=== PATIENT | female | born 1975 | race Caucasian/White ===

== ENCOUNTER 2020-12-10 17:14 | Inpatient (IN) | payer BC ==
[~2020-12-10] VITALS: Ht 165.1 cm; Wt 77.0 kg
[~2020-12-10 17:14] MED LIST: CYCLOBENZAPRINE10 MG PO; EFFEXOR XR75 MG/CAP PO; FLEXERIL5 M1 PO; FLONASE AL50 MCG/ACT NS; LAMOTRIGINE100 MG PO; LIPITOR20 M1 PO; LORAZEPAM0.5 MG PO; NEURONTIN100 MG PO; NEURONTIN300 MG PO; NEURONTIN600 MG PO; TRAMADOL HCL50 MG PO; VALPROIC ACD250 M3 PO; XYZAL ALLERGY 245 MG PO
--- NOTE | 2020-12-10 17:35 | NUR ---
TO ROOM VIA WHEELCHAIR
[2020-12-10 18:21] LABS: HEMATOCRIT 36.5 % (37.0-47.0); HEMOGLOBIN 11.7 g/dl (12.0-16.0); IMMATURE GRANULOCYTES 0.4 % (0.0-5.0); MEAN CELL VOLUME 89.5 fL CALC (80.0-100.0); MEAN CORPUSCULAR HGB 28.7 pG CALC (26.0-32.0); MEAN CORPUSCULAR HGB CONC 32.1 g/dL CAL (32.0-36.0); NEUT# 3.32 thou/uL (2.00-7.15); RED BLOOD COUNT 4.08 mill/uL (4.20-5.60); RED CELL DISTRI WIDTH 12.6 % (11.5-15.5)
--- NOTE | 2020-12-10 18:28 | NUR ---
IV AND O2 PLACE, NO DISTRESS NOTED. CALL LIGHT WITHIN REACH. BED IN LOW POSITION.
[2020-12-10 18:36] LABS: ALBUMIN 3.9 g/dL (3.2-5.0); ALKALINE PHOSPHATASE 55 u/l (38-126); ANION GAP 10 (6-22 (CALC)); BILIRUBIN, TOTAL 0.4 mg/dL (0.0-1.4); BUN 12 mg/dL (7-17); BUN/CREATININE RATIO 16 (12-20 (CALC)); CARBON DIOXIDE 29 mmol/l (22-30); CHLORIDE 96 mmol/l (95-108); CREATININE 0.8 mg/dL (0.5-1.0); GFR > 60 ML/MIN (>=60 (CALC)); GFR FOR AFR.AMER. > 60 ML/MIN (>=60 (CALC)); POTASSIUM 3.3 mmol/l (3.5-5.1); SGOT/AST 59 u/l (14-36); SODIUM 132 mmol/l (137-146); TOTAL PROTEIN 6.9 g/dL (6.3-8.2)
[2020-12-10 18:47] LABS: MYOGLOBIN 87 ng/mL (0 - 62)
--- NOTE | 2020-12-10 19:45 | NUR ---
NO COUGH NO CONGESTION NO SOB/DYSPNEA.W/P/D SKIN
--- NOTE | 2020-12-10 22:31 | NUR ---
W/P/D SKIN NO COUGH NO CONGESTION NO S/S OF DYSPNEA UP TO BSC TO VOID.PT C/O NAUSEA AND MEDICATED NO VOMITING
--- NOTE | 2020-12-11 01:42 | NUR ---
PT UP TO BSC TO VOID HAS DRY FITTINGS FINISHER COUGHING SPASM THEREAFTER NO [id number] NO CONGESTION MEDICATED WITH PRN ROBITUSSIN SYRUP.
--- NOTE | 2020-12-11 04:40 | NUR ---
COUGHING SPASM HAS RESOLVED.PT FEELS IMPROVED.REINFORCED DX AND POC WITH PT.W/P/D SKIN NO DYSPNEA.NO CONGESTION NO PAIN OF ANY ORIGIN
[2020-12-11 04:55] LABS: HEMATOCRIT 38.1 % (37.0-47.0); HEMOGLOBIN 11.9 g/dl (12.0-16.0); IMMATURE GRANULOCYTES 0.9 % (0.0-5.0); MEAN CELL VOLUME 90.3 fL CALC (80.0-100.0); MEAN CORPUSCULAR HGB 28.2 pG CALC (26.0-32.0); MEAN CORPUSCULAR HGB CONC 31.2 g/dL CAL (32.0-36.0); NEUT# 3.36 thou/uL (2.00-7.15); RED BLOOD COUNT 4.22 mill/uL (4.20-5.60); RED CELL DISTRI WIDTH 12.8 % (11.5-15.5)
[2020-12-11 05:12] LABS: ALBUMIN 3.7 g/dL (3.2-5.0); ALKALINE PHOSPHATASE 53 u/l (38-126); ANION GAP 11 (6-22 (CALC)); BILIRUBIN, TOTAL 0.4 mg/dL (0.0-1.4); BUN 12 mg/dL (7-17); BUN/CREATININE RATIO 18 (12-20 (CALC)); C-REACTIVE PROTEIN 6.9 mg/dL (0-0.9); CARBON DIOXIDE 31 mmol/l (22-30); CHLORIDE 98 mmol/l (95-108); CREATININE 0.7 mg/dL (0.5-1.0); GFR > 60 ML/MIN (>=60 (CALC)); GFR FOR AFR.AMER. > 60 ML/MIN (>=60 (CALC)); SGOT/AST 62 u/l (14-36); SODIUM 135 mmol/l (137-146); TOTAL PROTEIN 6.6 g/dL (6.3-8.2)
[2020-12-11 05:15] LABS: POTASSIUM 4.6 mmol/l (3.5-5.1)
--- NOTE | 2020-12-11 07:15 | NUR ---
RECIEVED REPORT FROM JAZZY RN, PT RESTING ON 2L OXYGEN, CONTINUOUS CARDIAC MONITORING IN PLACE, CALL LIGHT IN REACH
[2020-12-11] MEDS ORDERED: VENTOLIN HFA IN (10:21)
[2020-12-11] MEDS ORDERED: FLOVENT HFA44 MC1 IN (10:22)
[2020-12-11] MEDS ORDERED: TRILEPTAL150 MG PO (10:23)
--- NOTE | 2020-12-11 11:00 | NUR ---
PT ARRIVED TO FLOOR BY ER NURSE. BEDSIDE REPORT RECEIVED. NO COMPLAINS/DISTRESS AT THIS SAT. PT O2 SAT 90S. PT HAS C/O IV AND PLACEMENT REQUESTED TO BE REMOVED. DR HARRELL AWARE OK TO LEAVE OUT. NO IV MEDS TO BE GIVEN. WILL CONTIUE TO MONITOR.
--- NOTE | 2020-12-11 11:00 | NUR ---
PT AOX3, TRANSPORTED TO [facility] FLOOR, REPORT GIVEN TO MARLO MENDOZA. OXYGEN USED IN TRANSPORT 3L, ALL BELONGINGS WITH PT
[2020-12-11 11:09] VITALS: BP 125/67
[2020-12-11 15:00] VITALS: BP 111/54
--- NOTE | 2020-12-11 16:30 | NUR ---
PT REQUESTED TO GET UP TO SHOWER. WHEN ATTEMPTED PT BEGAN TO DESAT, WENT TO 83% PER KYLER. SHE STATED SHE PUT PT BACK IN BED THEN CAME TO NOTIFY SN. SN INSTRUCTED PT TO PRONE AND HAVE LEFT O2 SAT AT BEDSIDE. INSTRUCTED IN VENTOLIN USE AND MEDICATED PRN ROBITUSSIN. WILL CONTINUE TO MONITOR.
--- NOTE | 2020-12-11 17:48 | NUR ---
02 HAS BEEN STABLE WITH PT ON 8LPM HIGH FLOW. 02 SAT 95%.
[2020-12-11 19:00] VITALS: BP 126/79
--- NOTE | 2020-12-11 20:00 | NUR ---
PATIENT RESTING IN BED AT THIS TIME-AWAKE ALERT AND ORIENTEDX3. PATIENT IS SLIGHTLY ANXIOUS ABOUT BEING IN THE HOSPITAL. PATIENT ON O2 10 HIGH FLOW. LUNGS ARE CLEAR BUT DDIMINISHED. NON-PRODUCTIVE COUGH. NEW IV SITE STARTED TO RAC WITH GOOD BLOOD RETURN. ROCEPHINE HUNG ORDERED. PATIENT ON ISOLATION FOR COVID. ENCOURAGED USE OF IS Q1H WHILE AWAKE. ENCOURAGED PRONING WHEN POSSIBLE. PATIENT UP TO THE BR TO VOID AND THEN BACK TO BED. SAFETY PRECAUTIONS REINFORCED. ALESSANDRA LIGHT IN REACH. WILL CONT TO MONITOR.
--- NOTE | 2020-12-11 23:00 | NUR ---
PATIENT RESTING IN BED WITH O2 VIA NASAL CANNULA IN PLACE. AZITHRO INFUSED ORDERED. PATIENT WAS MEDICATED FOR CHRONIC BACK PAIN WITH TYLENOL 650MG PO FOR 8/10 PAIN SCALE. ALSO MEDICATED FOR NON-PRODUCTIVE COUGH WITH ROBITUSSIN AC ORDERED PRN. PROVIDED WITH JUICE AND CEREAL BAR FOR HS SNACK. IV SITE TO LEFT AC IS HEALTHY. SAFETY PRECAUTIONS REINFORCED. CALL LIGHT IN REACH. WILL CONT TO MONITOR.
[2020-12-12] VITALS: BP 83/46
--- NOTE | 2020-12-12 00:29 | NUR ---
PATIENT RESTING IN BED WITH O2 OFF. PATIENT SLIGHTLY CONFUSED. THINKS THAT STAFF IS HER SISTER. THINKS THAT SHE IS AT HOME. BP IS LOW-83/46. O2 REAPPLIED AND O2 SAT OF 93% OBTAINED.. SAFETY PRECAUTIONS REINFORCED. REORIENTED TO SITUATION. CALL LIGHT IN REACH. WILL CONT TO MONITOR.
[2020-12-12 04:00] VITALS: BP 99/59
--- NOTE | 2020-12-12 04:32 | NUR ---
PATIENT RESTING IN BED AT THIS TIME-O2 VIA NASAL CANNULA IN PLACE DOWN TO 5L HIGH FLOW WITH O2 SAT OF 96%. CALL LIGHT IN REACH. WILL CONT TO MONITOR.
[2020-12-12 06:22] LABS: HEMATOCRIT 36.3 % (37.0-47.0); HEMOGLOBIN 11.4 g/dl (12.0-16.0); MEAN CELL VOLUME 91.2 fL CALC (80.0-100.0); MEAN CORPUSCULAR HGB 28.6 pG CALC (26.0-32.0); MEAN CORPUSCULAR HGB CONC 31.4 g/dL CAL (32.0-36.0); NEUT# 5.72 thou/uL (2.00-7.15); RED BLOOD COUNT 3.98 mill/uL (4.20-5.60); RED CELL DISTRI WIDTH 12.8 % (11.5-15.5)
[2020-12-12 06:25] LABS: ALBUMIN 3.2 g/dL (3.2-5.0); ALKALINE PHOSPHATASE 50 u/l (38-126); ANION GAP 11 (6-22 (CALC)); BUN 14 mg/dL (7-17); BUN/CREATININE RATIO 26 (12-20 (CALC)); CARBON DIOXIDE 28 mmol/l (22-30); CHLORIDE 101 mmol/l (95-108); CREATININE 0.6 mg/dL (0.5-1.0); GFR > 60 ML/MIN (>=60 (CALC)); GFR FOR AFR.AMER. > 60 ML/MIN (>=60 (CALC)); POTASSIUM 4.1 mmol/l (3.5-5.1); SGOT/AST 54 u/l (14-36); SODIUM 136 mmol/l (137-146); TOTAL PROTEIN 5.8 g/dL (6.3-8.2)
[2020-12-12 06:31] LABS: BILIRUBIN, TOTAL 0.2 mg/dL (0.0-1.4)
--- NOTE | 2020-12-12 08:51 | NUR ---
PT AWAKE, A&OX4, PT SITTING UP IN BED. PT DENIES ANY PAIN AT THIS TIME. VS AND ASSESSMENT COMPLETE. PT SP02 92% ON 5L NC. PT DENIES SOB AT THIS. BP 90/50 WILL MONITOR CLOSELY. ABDOMEN FLAT,SOFT AND NONTENDER. BOWEL SOUNDS ACTIVE X 4QUADS. PERIPHERAL PULSES PALPABLE. LUNGS DIMINISHED. PT AMBULATED TO BATHROOM WITHOUT ASSIST WITHOUT DISTRESS. SAFETY PRECAUTIONS IN PLACE AND CALL LIGHT WITHIN PATIENTS REACH. WILL CONTINUE TO MONITOR PT CLOSELY
[2020-12-12 10:50] VITALS: BP 89/39
--- NOTE | 2020-12-12 12:00 | NUR ---
PT SITTING IN CHAIR. PT DENIES ANY PAIN OR DISTRESS. PT HAS NO NEEDS AT THIS TIME. WILL CONTINUE TO MONITOR
[2020-12-12 14:50] VITALS: BP 106/61
--- NOTE | 2020-12-12 16:00 | NUR ---
PT LYING IN BED READING. PT HAS NO NEEDS AT THIS TIME WILL CONTINUE TO MONITOR
[2020-12-12 19:08] VITALS: BP 108/65
--- NOTE | 2020-12-12 20:00 | NUR ---
PATIENT AWAKE IN BED. RESPIRATIONS EVEN AND UNLABORED. HR REG. DENIES PAIN. O2 5L N/C ON THE FLOOR, GIVEN TO PATIENT TO PUT ON. NO ACUTE DISTRESS. SPOKE WITH PATIENT REGARDS TRILEPTAL AND ASKED IF SOMEONE HAD BROUGHT THE MEDICATION IN SO IT CAN BE ADMINISTERED DUE TO NOT BEING ON HOSPITAL FORMULARY. PATIENT REPLIED THAT SHE HAD BEEN TAKING HER OWN MEDICATIONS WHILE IN THE HOSPITAL. PATIENT PULLED OUT A LARGE PILL BOX WITH A TOTAL OF 28 SPACES TO PUT MEDICATIONS. SHE SAID SHE HAS BEEN TAKING HER ATIVAN, TRILEPTAL, AND ULTRAM BECAUSE NOBODY HAS GIVEN IT TO HER. THE PATIENT AND THIS NURSE COUNTED EACH PILL IN EACH INDIVIDUAL BOX. BOX WAS TAKEN FROM PATIENT'S ROOM AND PLACED IN THE MED ROOM FOR SAFETY. PATIENT ALSO CALLED SOMEONE TO BRING IN FIRST THING IN THE A.M. SO THEY CAN BE VERIFIED BY PHARMACY. PATIENT IS NOT IN DISTRESS. CALM DEMEANOR. BED IN LOW POSITION. CALL LIGHT WITHIN REACH.
--- NOTE | 2020-12-12 23:52 | NUR ---
PATIENT AWOKE WITH NAUSEA. CRYING IN ROOM. ZOFRAN IV GIVEN WITH POSITIVE EFFECT.
[2020-12-13 00:57] VITALS: BP 117/71
[2020-12-13 04:36] VITALS: BP 105/65
--- NOTE | 2020-12-13 04:42 | NUR ---
PATIENT WOKE AGAIN FEELING NAUSEOUS AND COUGHING A LOT. ZOFRAN AND ROBITUSSIN AC GIVEN.
[2020-12-13 05:41] LABS: HEMATOCRIT 36.8 % (37.0-47.0); HEMOGLOBIN 11.6 g/dl (12.0-16.0); IMMATURE GRANULOCYTES 4.3 % (0.0-5.0); MEAN CELL VOLUME 91.1 fL CALC (80.0-100.0); MEAN CORPUSCULAR HGB 28.7 pG CALC (26.0-32.0); MEAN CORPUSCULAR HGB CONC 31.5 g/dL CAL (32.0-36.0); NEUT# 4.46 thou/uL (2.00-7.15); RED BLOOD COUNT 4.04 mill/uL (4.20-5.60); RED CELL DISTRI WIDTH 12.5 % (11.5-15.5)
[2020-12-13 06:04] LABS: ALBUMIN 3.1 g/dL (3.2-5.0); ALKALINE PHOSPHATASE 53 u/l (38-126); ANION GAP 9 (6-22 (CALC)); BILIRUBIN, TOTAL 0.2 mg/dL (0.0-1.4); BUN 14 mg/dL (7-17); BUN/CREATININE RATIO 29 (12-20 (CALC)); C-REACTIVE PROTEIN 4.1 mg/dL (0-0.9); CARBON DIOXIDE 27 mmol/l (22-30); CHLORIDE 105 mmol/l (95-108); CREATININE 0.5 mg/dL (0.5-1.0); GFR > 60 ML/MIN (>=60 (CALC)); GFR FOR AFR.AMER. > 60 ML/MIN (>=60 (CALC)); POTASSIUM 4.4 mmol/l (3.5-5.1); SGOT/AST 51 u/l (14-36); SODIUM 137 mmol/l (137-146); TOTAL PROTEIN 5.7 g/dL (6.3-8.2)
--- NOTE | 2020-12-13 08:00 | NUR ---
PT AWAKE RESTING COMFORTABLE IN BED. PT ALERT AND ORIENTED. VS AND ASSESSMENT COMPLETE. PT ON TELE AND O2 RESPIRATIONS ARE EVEN AND UNLABORED. ABDOMEN SOFT NONTENDER. IV PATENT AND FLUSHED. SAFETY PRECAUTIONS IN PLACE AND CALL LIGHT PLACED WITHIN PATIENTS REACH. WILL MONITOR PT CLOSELY
[2020-12-13 08:23] LABS: URINE BILIRUBIN - DIPSTICK NEGATIVE (NEGATIVE); URINE BLOOD DIPSTICK NEGATIVE (NEGATIVE); URINE COLOR YELLOW; URINE GLUCOSE - DIPSTICK NEGATIVE (NEGATIVE); URINE KETONE NEGATIVE (NEGATIVE); URINE LEUK ESTERASE NEGATIVE (NEGATIVE); URINE PH 7.5 (4.5-8.0); URINE PROTEIN - DIPSTICK NEGATIVE (NEG-TRACE); URINE SPECIFIC GRAVITY 1.015; URINE UROBILINOGEN - DIPSTICK 0.2 E.U./dL (0.2)
[2020-12-13 08:26] LABS: URINE NITRITE - DIPSTICK NEGATIVE (Negative)
--- NOTE | 2020-12-13 10:15 | NUR ---
PT FAILED 6 MINUTE WALK TEST. PT DESAT TO 83% AFTER 30 MINUTES ON RA AT REST. PHYSICIAN NOTIFIED
[2020-12-13 10:50] VITALS: BP 103/59
--- NOTE | 2020-12-13 12:00 | NUR ---
PT SITTING UP IN BED WATCHING TV. PT DENIES ANY NEEDS. WILL CONTINUE TO MONITOR. SAFETY MEASURES MAINTAINED AND CALL LIGHT WITHIN PT REACH. -
[2020-12-13 15:25] VITALS: BP 125/77
--- NOTE | 2020-12-13 16:00 | NUR ---
PT RESTING IN BED. PT DENIES ANY NEEDS AT THIS TIME. WILL CONTINUE TO MONITOR. SAFETY MEASURES MAINTAINED AND CALL LIGHT WITHIN REACH OF PATIENT.
[2020-12-13 19:00] VITALS: BP 137/82
--- NOTE | 2020-12-13 19:30 | NUR ---
PATIENT ALERT AND ORIENTED. ABLE TO MAKE NEEDS KNOWN. ASSESSMENT COMPLETE AT THIS TIME. CALL LIGHT AND BELONGINGS REMAIN IN REACH.
--- NOTE | 2020-12-13 21:57 | NUR ---
CONTACTED I O PSYCHOLOGIST DOCTOR AND INFORMED OF PATIENT WANTING TO GO AMA. PATIENT DECIDED TO STAY. ALSO INFORMED DOCTOR OF PATIENTS HOME MEDICATION OXYCARBAZAPINE NOT GIVEN DUE TO NOT BEING BROUGHT.
[2020-12-14] VITALS: BP 132/73
--- NOTE | 2020-12-14 02:10 | NUR ---
RESTING IN BED ON HER LEFT SIDE. NO COMPLAINTS VOICED AT THIS TIME.
[2020-12-14 04:00] VITALS: BP 131/82
[2020-12-14 05:57] LABS: HEMATOCRIT 38.5 % (37.0-47.0); MEAN CELL VOLUME 91.7 fL CALC (80.0-100.0); MEAN CORPUSCULAR HGB 28.6 pG CALC (26.0-32.0); MEAN CORPUSCULAR HGB CONC 31.2 g/dL CAL (32.0-36.0); NEUT# 6.28 thou/uL (2.00-7.15); RED BLOOD COUNT 4.2 mill/uL (4.20-5.60); RED CELL DISTRI WIDTH 12.7 % (11.5-15.5)
[2020-12-14 06:05] LABS: IMMATURE GRANULOCYTES 7.3 % (0.0-5.0)
--- NOTE | 2020-12-14 06:10 | NUR ---
RESTING IN BED WITH EYES CLOSED LAYING ON RIGHT SIDE. NO SIGNS OF DISTRESS NOTED. PATIENT TAKES OFF OXYGEN DURING THE NIGHT PERIODICALLY. REDIRECTION NEEDED.
[2020-12-14 06:12] LABS: ALBUMIN 3.3 g/dL (3.2-5.0); ALKALINE PHOSPHATASE 56 u/l (38-126); ANION GAP 12 (6-22 (CALC)); BUN 11 mg/dL (7-17); BUN/CREATININE RATIO 19 (12-20 (CALC)); CARBON DIOXIDE 27 mmol/l (22-30); CHLORIDE 105 mmol/l (95-108); CREATININE 0.6 mg/dL (0.5-1.0); GFR > 60 ML/MIN (>=60 (CALC)); GFR FOR AFR.AMER. > 60 ML/MIN (>=60 (CALC)); POTASSIUM 4.4 mmol/l (3.5-5.1); SGOT/AST 42 u/l (14-36); SODIUM 139 mmol/l (137-146); TOTAL PROTEIN 5.9 g/dL (6.3-8.2)
[2020-12-14 06:29] LABS: BILIRUBIN, TOTAL 0.3 mg/dL (0.0-1.4)
--- NOTE | 2020-12-14 07:05 | NUR ---
REPORT RECEIVED FROM JENNIFERRN
[2020-12-14 08:59] VITALS: BP 97/54
--- NOTE | 2020-12-14 09:00 | NUR ---
PT RESTING IN SEMI FOWLERS POSITION,A&O X3;VS OBTAINED AND ASSESSMENT COMPLETED;PT REPORTS LOWER BACK/NECK PAIN RATING 8/10 ON THE PAIN SCALE AND REQUESTS PRN PAIN MEDICATION, PT TO BE MEDICATED WITH PRN ULTRAM 50MG PO AND ATIVAN 0.5MG PO PER REQUEST;RESPIRATIONS EVEN AND UNLABORED ON O2 @ 4L NC, CLEAR/DIMINISHED LUNG SOUNDS WITH NON-PRODUCTIVE COUGH;ABOMEN SOFT ON PALPATION AND ACTIVE IN ALL 4 QUADRANTS;WEAK PEDAL PULSES;SKIN INTACT;#20G TO LAC FLUSHED AND PATENT,SITE APPEARS HEALTHY;PT REMAINS IN AIR/CONTACT PRECAUTIONS DUE TO COVID19 DX;PT DENIES ANY ADDITIONAL NEEDS AND IS ENCOURAGED TO CALL FOR ASSISTANCE IF NEEDED;FALL PRECAUTIONS IN PLACE WITH BED IN THE LOWEST POSITION AND CALL LIGHT IN REACH;WILL CONTINUE TO MONITOR
[2020-12-14 10:00] VITALS: BP 91/46
--- NOTE | 2020-12-14 10:50 | NUR ---
AT BEDSIDE DISCUSSING POC.
--- NOTE | 2020-12-14 11:25 | NUR ---
PT RESTING IN SEMI FOWLERS POSITION;RESPIRATIONS EVEN AND UNLABORED ON O2 @ 4L VIA NC;PT DENIES ANY CURRENT PAIN OR DISCOMFORTS;IV SITE PATENT;PT REQUESTS PRN COUGH MEDICATION, INFORMED PT THAT PRN ORDER HAD AND PT VERBALIZES UNDERSTANDING;MD NOTIFIED OF REQUEST, AWAITING NEW ORDERS;PT ROOM MOVED TO MED/SURG ROOM 268 AT THIS TIME DUE TO MAINTENANCE NEEDS AND ALL BELONGINGS MOVED WITH HER;PT DENIES ANY ADDITIONAL NEEDS AT THIS TIME AND IS ENCOURAGED TO CALL FOR ASSISTANCE IF NEEDED;FALL PRECAUTIONS REMAIN IN PLACE WITH CALL LIGHT IN REACH;WILL CONTINUE TO MONITOR
--- NOTE | 2020-12-14 12:00 | NUR ---
PT MEDICATED WITH PRN TYLENOL 650MG PO AND FLEXERIL 5MG PO FOR LOWER BACK/NECK PAIN RATING 6/10 ON THE PAIN SCALE,WILL CONTINUE TO MONITOR FOR EFFECTIVENESS
--- NOTE | 2020-12-14 13:55 | NUR ---
PT MEDICATED WITH PRN ROBITUSSIN AC AT THIS TIME PER REQUEST;WILL CONTINUE TO MONITOR FOR EFFECTIVENESS
--- NOTE | 2020-12-14 15:15 | NUR ---
PT RESTING IN SEMI FOWLERS POSITION;RESPIRATIONS EVEN AND UNLABORED ON O2 @ 4L HF NC;PT REPORTS LOWER BACK/NECK PAIN RATING 6/10 AND REQUESTS PRN PAIN MEDICATION,PT MEDICATED WITH PRN ULTRAM 50MG PO AT THIS TIME;IV SITE TO LAC REMAINS PATENT;PT DENIES ANY ADDITIONAL NEEDS AND IS ENCOURAGED TO CALL FOR ASSISTANCE IF NEEDED;CALL LIGHT IN REACH;WILL CONTINUE TO MONITOR
[2020-12-14 17:00] VITALS: BP 96/65
[2020-12-14 19:00] VITALS: BP 96/57
--- NOTE | 2020-12-14 19:13 | NUR ---
PATRICA RECEIVED FROM HOWARD SERRA.
[2020-12-15 04:00] VITALS: BP 109/59
--- NOTE | 2020-12-15 04:36 | NUR ---
RESTING QUIETLY EYES CLOSED. CALL LIGHT WITHIN REACH.
--- NOTE | 2020-12-15 04:37 | NUR ---
LATE ENTRY FOR 12/14 @ 2120. PATIENT SITTING UP IN BED WATCHING TV. PATIENT C/O BACK PAIN ULTRAM ADMINISTERED IN ADDITION TO SCHEDULED NIGHTLY MEDICATION. PATIENT EXPRESSES CONCERNS OF TREMORS THAT SHE HAS. STATING THAT TREMORS HAVE BEEN PRESENT INTERMITTENTLY OVER THE PAST FEW WEEKS. EXPLAINED TO PATIENT THAT WITH USE OF PSYCHOTROPIC MEDICATION, THAT THIS IS A POSSIBLE SIDE EFFECT HOWEVER SHE SHOULD CONSULT WITH PSYCHIATRIST. PATIENT VERBALIZES UNDERSTANDING. OTHERWISE PATIENT ISN'T IN ANY DISTRESS, RESPIRATIONS UNLABORED. CALL LIGHT WITHIN REACH. INSTRUCTED TO CALL FOR ASSISTANCE.
[2020-12-15 05:34] LABS: HEMATOCRIT 36.4 % (37.0-47.0); HEMOGLOBIN 11.7 g/dl (12.0-16.0); MEAN CELL VOLUME 90.5 fL CALC (80.0-100.0); MEAN CORPUSCULAR HGB 29.1 pG CALC (26.0-32.0); MEAN CORPUSCULAR HGB CONC 32.1 g/dL CAL (32.0-36.0); NEUT# 6.88 thou/uL (2.00-7.15); RED BLOOD COUNT 4.02 mill/uL (4.20-5.60); RED CELL DISTRI WIDTH 12.4 % (11.5-15.5)
[2020-12-15 05:41] LABS: IMMATURE GRANULOCYTES 8.2 % (0.0-5.0)
[2020-12-15 05:53] LABS: ALKALINE PHOSPHATASE 55 u/l (38-126); ANION GAP 11 (6-22 (CALC)); BILIRUBIN, TOTAL 0.2 mg/dL (0.0-1.4); BUN 16 mg/dL (7-17); BUN/CREATININE RATIO 30 (12-20 (CALC)); C-REACTIVE PROTEIN 3.4 mg/dL (0-0.9); CARBON DIOXIDE 27 mmol/l (22-30); CHLORIDE 103 mmol/l (95-108); CREATININE 0.5 mg/dL (0.5-1.0); GFR > 60 ML/MIN (>=60 (CALC)); GFR FOR AFR.AMER. > 60 ML/MIN (>=60 (CALC)); POTASSIUM 4.3 mmol/l (3.5-5.1); SGOT/AST 35 u/l (14-36); SODIUM 136 mmol/l (137-146); TOTAL PROTEIN 5.6 g/dL (6.3-8.2)
--- NOTE | 2020-12-15 08:00 | NUR ---
PT AWAKE AND RESTING IN BED. PT ALERT AND ORIENTED. PT DENIES AND PAIN OR DISTRESS AT THIS TIME. VS AND ASSESSMENT COMPLETE. LUNGS DIMINISHED, RESPIRATIONS EVEN AND UNLABORED. ABDOMEN SOFT AND NONTENDER. PERIPHERAL PULSES PALPABLE. IV INTACT AND PATENT. SAFETY PRECAUTIONS IN PLACE. CALL LIGHT WITHIN PATIENTS REACH. WILL MONITOR PT CLOSELY
[2020-12-15] MEDS ORDERED: DEXAMETHASON6 MG PO (10:09)
[2020-12-15] MEDS ORDERED: ASPIRIN REGULA325 M1 PO (10:09)
[2020-12-15] MEDS ORDERED: ZITHROMAX250 MG PO (10:10)
[2020-12-15 11:21] VITALS: BP 97/55
--- NOTE | 2020-12-15 16:52 | NUR ---
PATIENT GIVEN DISCHARGE INSTRUCTIONS. PATIENT VERBALIZES UNDERSTANDING
--- NOTE | 2020-12-15 17:15 | NUR ---
PT LEFT FLOOR VIA WHEELCHAIR. ALL BELONGINGS AND MEDICATIONS FROM ROOM WAS GIVEN TO PATIENT BEFORE LEAVING PATIENTS ROOM. PT STABLE WITH NO COMPLAINTS OR CONCERNS
--- NOTE | 2020-12-16 16:30 | NUR ---
PT PICKED UP HOME MEDICATIONS FROM PHARMACY AT THIS TIME. PURPLE PILL BOX IN SEALED PHARMACY BAG PROVIDED TO THE PATIENT.
== END 2020-12-15 17:10 | disposition home or self-care (01) | DRG 177 ==
LOC: ED 17:14 → ED-I 19:55 → ED 20:06 → ED-I 20:07 → MS2 12-11 10:40
PROVIDERS: Emergency Medicine; Nurse Practitioner; ADMIT Internal Medicine; ATTEND Internal Medicine
PROC: XW033E5 Introduction of Remdesivir Anti-infective into Peripheral Vein, Percutaneous Approach, New Technology Group 5 (ICD-10-PCS; principal; 2020-12-11)
DX: U07.1 COVID-19 (principal); J12.82 Pneumonia due to coronavirus disease 2019; R09.02 Hypoxemia; E87.6 Hypokalemia; E78.5 Hyperlipidemia, unspecified; F41.9 Anxiety disorder, unspecified; F32.9 Major depressive disorder, single episode, unspecified; M79.7 Fibromyalgia; M19.90 Unspecified osteoarthritis, unspecified site; F17.290 Nicotine dependence, other tobacco product, uncomplicated
CPT/HCPCS: J1650; Q9967